=== PATIENT | female | born 1995 | race Caucasian/White ===

== ENCOUNTER → 2019-01-19 23:58 | Observation (INO) ==
[2019-01-19 22:26] LABS: Amphetamine Screen,Urine Negative ng/mL (Cutoff=1000); Barbiturate Screen,Urine Negative ng/mL (Cutoff=200); Benzodiazepines Screen,Urine Negative ng/mL (Cutoff=200); Cannabinoid Screen,Urine Negative ng/mL (Cutoff = 50); Cocaine Screen,Urine Negative ng/mL (Cutoff= 300); Opiate Screen,Urine Negative ng/mL (Cutoff=300); Phencyclidine Screen,Urine Negative ng/mL (Cutoff=25)
[2019-01-19 23:23] LABS: Candida DNA DETECTED (Not Detect); Gardnerella DNA Not Detected (Not Detect); Trichomonas DNA Not Detected (Not Detect)
--- NOTE | 2019-01-19 23:43 | Discharge Summary ---
Date of Encounter: 01/19/19 Time of Encounter: 23:41 - Discharge Diagnosis (1) 39 weeks gestation of Priority: Primary Status: Acute Comments: admit to observation for c/o LE swelling and visual disturbance. (2) Vulvovaginal candidiasis Priority: Secondary Status: Acute Comments: will send home with Rx for diflucan (3) NST (non-stress test) reactive Priority: Secondary Status: Acute Comments: FHR 135 bpm, category 1 - Discharge Medications Prescriptions: New Fluconazole [Diflucan] 150 mg PO DAILY 1 Days #1 tab No Action One Tablet 1 mg PO DAILY Home Medications: Fluconazole [Diflucan] 150 mg PO DAILY 1 Days #1 tab 01/19/19 [Rx] One Tablet 1 mg PO DAILY 01/19/19 [History] Allergies/Adverse Reactions: Allergy/AdvReac Type Severity Reaction Status Date / Time No Known Allergies Allergy Verified 06/12/18 18:11 Data Procedures and tests throughout hospitalization: Laboratory Tests 01/19/19 01/19/19 21:56 22:27 Urine Opiates Screen Negative Ur Buprenorphine Scrn Negative Ur Barbiturates Screen Negative Ur Phencyclidine Scrn Negative Ur Amphetamines Screen Negative U Benzodiazepines Scrn Negative Urine Cocaine Screen Negative U Marijuana (THC) Screen Negative Ur Drug Screen Interp See Below Nelli species DNA DETECTED A Gardnerella DNA Probe Not Detected Trichomonas DNA Probe Not Detected Labs on day of discharge: Labs from last 24 hours 01/19/19 01/19/19 22:27 21:56 Urine Opiates Screen Negative Ur Buprenorphine Scrn Negative Ur Barbiturates Screen Negative Ur Phencyclidine Scrn Negative Ur Amphetamines Screen Negative U Benzodiazepines Scrn Negative Urine Cocaine Screen Negative U Marijuana (THC) Screen Negative Ur Drug Screen Interp See Below Nelli species DNA DETECTED A [place] DNA Probe Not Detected Trichomonas DNA Probe Not Detected Date of admission: 01/19/19 21:37 Discharging clinician: Yue Brewster Anticipated date of discharge: 01/19/19 - Patient Status Disposition: Home, Self-Care Condition: Good Functional capacity at discharge: independent ambulation Overall status at discharge: patient is progressing back to baseline - Discharge Instructions Follow Up With: Erna Greco [Advanced Practice Nurse] - - Diet and Activity Activity: resume usual activities as tolerated Diet: regular diet Hospital Course KINESEOLOGIST Hospital course: Patient arrived this evening with complaints of visual disturbance and lower extremity swelling. She states she has been seeing "floaters" and was concerned about preeclampsia. Her BP's are all normal and lower extremity swelling is mini mal. She did also complain of some abnormal vaginal discharge so a vaginosis panel was completed and returned positive for yeast. Patient was informed and will be sent home with RX for Diflucan. She reports positive movement, denies vaginal bleeding and watery discharge. She is to return to OB provider tomorrow as scheduled for routine visit. Time Attestation: Total time spent providing and/or coordinating discharge services: Time Spent: Less than 30 minutes Exam - Constitutional General appearance IM: mild distress, A&O X 3, pleasant, answers questions appropriately - Respiratory Respiratory exam: Present: CTAB. Absent: accessory muscle use, rales, rhonchi, stridor, wheezes - Cardiovascular Cardiovascular exam IM: Present: RRR, +S1, +S2. Absent: diastolic murmur, systolic murmur - GI/Abdominal GI/Abdominal exam IM: normal bowel sounds - Rectal Rectal exam: deferred - External exam: normal external exam - Extremities Exam Extremities exam IM: Present: pedal edema (+1). Absent: cyanotic - Neurological Exam Neurological exam: alert, CN II-XII intact, oriented X3, reflexes normal - VTE Reasons for not Prescribing Prophylaxis: Treatment not Indicated - Low risk for VTE
== END | disposition home or self-care (01) ==
LOC: 1NENULAB
PROVIDERS: ADMIT Registered Nurse; ATTEND Registered Nurse

== ENCOUNTER 2019-01-21 18:09 | Inpatient (IN) ==
[~2019-01-21 18:09] MED LIST: *HR* Nalbuphine 10 MG/ML AMPUL IVP PRN; Famotidine 20 MG/2 ML VIAL IVP PRN; Lidocaine 1% 20 ML MDV INFILT PRN; Metoclopramide 10 MG/2 ML VIAL IVP PRN; Naloxone 0.4 MG/ML INJ IVP PRN; Penicillin G Potassium 5,000,000 UNIT in 0.9 % Sodium Chloride Mini Bag 100 ML IVPB ONE; miSOPROStol 25 MCG TABLET PO PRN
[2019-01-21] MEDS ORDERED: Ringers Solution, Lactated 1,000 ML IVC SCH (18:15)
[2019-01-21] MEDS ORDERED: Oxytocin 20 units/ LR 1000 mL 20 UNIT/1,000 ML BAG IVC SCH (18:15)
[2019-01-21 18:34] LABS: Basophils # 0.1 K/mcL (0.0-0.2); Basophils % 0.8 %; Eosinophils # 0.1 K/mcL (0.0-0.6); Eosinophils % 0.7 %; Hematocrit 38.8 % (35.3-44.9); Hemoglobin 12.9 g/dL (11.5-15.4); Immature Granulocytes % 2.2 % (0-4); Lymphocytes # 2.1 K/mcL (0.6-4.6); Lymphocytes % 14.3 %; Mean Corpuscular HGB Conc 33.2 g/dL (31.6-35.5); Mean Corpuscular Hemoglobin 30.2 pg (28.0-33.3); Mean Corpuscular Volume 90.9 fL (83.0-100.0); Mean Platelet Volume 11.6 fL (9.4-12.4); Monocytes # 1.7 K/mcL (0.0-1.3); Monocytes % 11.1 %; Neutrophils # 10.6 K/mcL (1.6-8.9); Platelet Count 271 K/mcL (140-400); Red Blood Count 4.27 M/mcL (3.82-4.97); Red Cell Distribution Width 13.3 % (11.5-14.5); Segmented Neutrophils % 70.9 %; White Blood Count 14.9 K/mcL (4.3-11.1)
--- NOTE | 2019-01-21 20:11 | Anesthesia Evaluation PreOp ---
Date of Encounter: 01/21/19 Time of Encounter: 20:09 - Past History Planned Operation: maia Cardiac History: Denies any Significant Hx Pulmonary History: Denies Any Significant HX SENIOR RISK ANALYST History: Seizures (as 3 day , none since) Other Medical History: GERD Anesthesia History: No Prior Anesthetic Complications : Yes Test: Positive Alcohol Use: none Drug use: none Medications and Allergies One Tablet 1 mg PO DAILY 01/19/19 [History] Allergy/AdvReac Type Severity Reaction Status Date / Time No Known Allergies Allergy Verified 01/21/19 17:26 - Meds/Allergy Pre-op Review Medications Reviewed: Yes Allergies Reviewed: Yes Beta Blockers on Current Med List: No Anesthesia Results - Labs 01/21/19 17:30 Anesthesia Exam 136/80 88 16 fht 133 Height: 5'2" Weight: 69 k NPO (# of Hours): 2 Pain Scale: 1 Pain Scale Used: Numeric (1 - 10) - HEENT Pupil (Motor): Pupils equal Mallampati: II Teeth: Normal Oral Opening: Greater than 3 - SENIOR RISK ANALYST LOC: Oriented SENIOR RISK ANALYST Motor: Normal RUE, Normal LUE, Normal RLE, Normal LLE, Normal Face SENIOR RISK ANALYST Sensory: Normal: RUE, LUE, RLE, LLE, Face - Cardiac Rhythm: Regular Murmur: None - Pulmonary Breath Sounds: bilateral Clear Anesthesia Assess/Plan ASA Score: 2 Level of consciousness: Cooperative Anesthetic Plan: Epidural (risks discussed, questions answered, consented) Autologous Blood: No Monitoring Plan: Standard Monitors Recovery Plan: Other
[2019-01-21] MEDS ORDERED: Epidural Premix (fent/bupiv) 110 ML EP SCH (20:15)
[2019-01-21 20:28] LABS: Amphetamine Screen,Urine Negative ng/mL (Cutoff=1000); Barbiturate Screen,Urine Negative ng/mL (Cutoff=200); Benzodiazepines Screen,Urine Negative ng/mL (Cutoff=200); Cannabinoid Screen,Urine Negative ng/mL (Cutoff = 50); Cocaine Screen,Urine Negative ng/mL (Cutoff= 300); Opiate Screen,Urine Negative ng/mL (Cutoff=300); Phencyclidine Screen,Urine Negative ng/mL (Cutoff=25)
--- NOTE | 2019-01-21 20:55 | OB/GYN History & Physical ---
Date of Encounter: 01/21/19 Time of Encounter: 20:19 Assessment and Plan (1) 39 weeks gestation of Current visit: No Status: Acute Admit for spontaneous rupture of membranes at 39w1d (2) GBS (group B Streptococcus carrier), +RV culture, currently Current visit: Yes Status: Acute PCN-G prophylaxis q4h until delivery. (3) Vulvovaginal candidiasis Current visit: No Status: Acute Diagnosed 2 days prior. Will treat with Diflucan (4) NST (non-stress test) reactive Current visit: No Status: Acute Category I FHR tracing History of Present Illness Chief complaint: SROM HPI: Ms. Kowalski is a 23 year old female at 39w1d who arrives after SROM today, clear fluid. Nitrazine was positive on admission, copious amount of fluid on pads. She reports positive movement, denies bleeding and regular contractions. Blood type O+ GBS positive Rubella Immune RPR negative HbSAG negative HIV negative Past Med Surg Social Fam HX - Past Medical History Source: patient Medical history: no medical history Psychiatric history: anxiety - Past Surgical History Surgical History: no surgical history - Social History Smoking Status: Never smoker Smokeless Tobacco Status: No Alcohol use: none Drug use: none Current living situation: Home - Independent, With Family Activity Level: Independent ambulation Recent Out of Country Travel Within the Last 8 Weeks: No Exposure or Possible Exposure to Illness During Travel: No - Family History Sister Living Status: Still Living Hx Family Cardiac Disorders: No Hx Family Respiratory Disorders: No Hx Family Cancer: No Hx Family GI Disorders: No Hx Family Endocrine Disorder: No Hx Family Neuromuscular Disorders: No Hx Family Neurologic Disorders: No Hx Family HEENT Disorders: No Hx Family Autoimmune Disorders: No Hx Family Medical Disorders: Yes (autistic) Obstetrical History - Pregnancies : 1 Para: 0 Term: 0 : 0 Ab's: 0 Livin Medications and Allergies One Tablet 1 mg PO DAILY 01/19/19 [History] Allergy/AdvReac Type Severity Reaction Status Date / Time No Known Allergies Allergy Verified 01/21/19 17:26 Review of System OB All systems PM: reviewed and no additional remarkable complaints except as stated Exam - Constitutional Constitutional: well developed, well nourished, no acute distress, average body habitus - HEENT HEENT: Normocephaly, Mucus Membranes Moist - Neck Neck exam: full ROM - Lungs Respiratory exam: CTAB - Cardiovascular Cardiovascular exam: RRR, +S1, +S2 - Breasts Breast: bilateral: normal - Abdomen Abdomen: Present: bowel sounds normal, gravid, non tender - Extremities Extremities exam: full ROM, normal capillary refill, normal inspection - Vulva Vulva: bilateral: normal - Vagina Vagina: Present: normal moisture - Cervix Dilation: 2 Effacement: 60 (per RN exam) Station: -2 - Uterus Uterus exam: Present: normal size - Anus/Rectum Anus/Rectum: Present: normal perianal skin Results Result Diagrams: 01/21/19 17:30 Abnormal lab results WBC 14.9 K/mcL (4.3-11.1) H 01/21/19 17:30 Neutrophils # 10.6 K/mcL (1.6-8.9) H 01/21/19 17:30 Monocytes # 1.7 K/mcL (0.0-1.3) H 01/21/19 17:30 All other labs normal. - VTE Reasons for not Prescribing Prophylaxis: Treatment not Indicated - Low risk for VTE
[2019-01-21] MEDS: Penicillin G Potassium 2,500,000 UNIT in 0.9 % Sodium Chloride 100 ML IVPB SCH (22:39)
--- NOTE | 2019-01-21 23:00 | OB Labor Progress Note ---
Date of Encounter: 01/21/19 Time of Encounter: 22:56 Labor Progress Note - Subjective Subjective: Patient coping well with contractions. Family members at bedside for support. - Cervix Cervix: 2 cm, unchanged from admission SVE - Heart Tones Heart Tones: FHR 130 bpm, moderate variability, +15x15 accels, no decels. - [place]: Irregular - Interventions Interventions: SVE per RN Unchanged, Pitocin to be initiated - Plan Plan: Start Pitocin Epidural when patient desires Anticipate
[2019-01-22] MEDS ORDERED: *HR* FentaNYL (PF) 100 MCG/2 ML VIAL EP ONE (00:02)
[2019-01-22] MEDS ORDERED: *HR* FentaNYL (PF) 100 MCG/2 ML VIAL ONE (00:04)
--- NOTE | 2019-01-22 00:30 | Anesthesia Procedures ---
Date of Encounter: 01/22/19 Time of Encounter: 00:28 Procedures: Anesthesia - Epidural/Spinal Patient ID/Chart reviewed: Yes Patient examined: Yes OB Eval: Gestational age: 39 OB Eval: : 1 OB Eval: Hx Para: 0 OB Eval: Dilated at (cm): 4 OB Eval: Contractions: Non-stressed pattern Consent Obtained: Yes Supplemental Oxygen: None/Room Air Site Prep: Aseptic Technique, Sterile prep and drape, 0.5% Chlorhexidine/Alcohol Patient position: upright Local Anesthetic: Lidocaine 1% Amount of Local Anesthetic used: 3 Touhy Needle Gauge: 18 Touhy Needle Depth (cm): 6 Catheter Depth at Skin (cm): 15 Test Dose (1.5% Lido + Epi): Volume given (mls): 3 Test Dose Result: Negative Loading Dose: Fentanyl (mcg): 100 Loading Dose: Other: ropavacaine 0.2% 5cc Loading Dose Administered: Thru Touhy Needle Infusion Med: 0.125% Bupivacaine w/ 2 mcg/ml Fentanyl Infusion Rate (mls/hr): 15 (pcea 5cc q30") Catheter Secured in Place: Tegaderm Interspace Used: L2-L3 Loss of Resistance (TANMAY): Yes Blood: No CSF: No Paresthesia: No Procedure: aseptic, tolerated well, VSS, effective Vitals + FHT's: 110/78 88 16 fht 133
[2019-01-22] MEDS: Penicillin G Potassium 2,500,000 UNIT in 0.9 % Sodium Chloride 100 ML IVPB SCH (01:55)
--- NOTE | 2019-01-22 02:37 | OB Labor Progress Note ---
Date of Encounter: 01/22/19 Time of Encounter: 02:35 Labor Progress Note - Subjective Subjective: Patient feeling intense pressure with contractions. - Vital Signs Vital Signs: WNL - Cervix Cervix: 9/100/+1 - Heart Tones Heart Tones: FHR 135 bpm, moderate variability, +15x15 accels, occasional early decel. - [employer]: q2-3 - Interventions Interventions: Attempted to reduce cervix due to patient's intense urge to push. Unable to reduce remaining cervix. Patient repositioned to tailor sitting position. - Plan Plan: Recheck cervix when patient feels constant urge to push. Anticipate
[2019-01-22] MEDS ORDERED: Oxytocin 20 units/ LR 1000 mL 20 UNIT/1,000 ML BAG IVC SCH (06:39)
[2019-01-22] MEDS ORDERED: Benzocaine/Menthol 56 GM AEROSOL SPRAY TP PRN (06:39)
[2019-01-22] MEDS ORDERED: Lanolin 7 G OINT...G. TP PRN (06:39)
[2019-01-22] MEDS ORDERED: Acetaminophen 325 MG TABLET PO PRN (06:39)
[2019-01-22] MEDS ORDERED: Ondansetron 4 MG/2 ML VIAL IVP PRN (06:52)
--- NOTE | 2019-01-22 07:03 | OB/GYN Procedure Note ---
Delivery - Delivery Date: 01/22/19 Provider: Yue Brewster Intrapartum events: none Delivery induction: none Delivery augmentation: pitocin Delivery monitor: external FHT, external uterine Anesthesia: local, epidural Quantitated Blood Loss: 200 - Infant (s) Infant A Delivery Date: 01/22/19 Infant Delivery Time: 03:21 Presentation: vertex Position: SHASHANK Route of delivery: Gender: Male Viability: Viable Pounds: 7 Ounces: 8 Weight Gram: 3.4 kg at 1 minute: 8 at 5 mins: 9 Shoulder Dystocia: not encountered Placenta: spontaneous, uterine exploration Cord: nuchal cord, 3 umbilical vessels, delivered through nuchal - Repair Episiotomy: none Laceration Description: Perineal - 1st Degree, Labial - Complications Delivery complications: retained placenta Delivery comments: Called to room for delivery. Under maternal effort, spontaneous delivery of a male over first-degree perineal laceration, repaired with 3-0 Vicryl. Bilateral labial lacerations noted, left side repaired with 4-0 Vicryl, right side left to heal by secondary intention. placed on maternal abdomen for drying and stimulation. Cord clamped and cut after pulsation ceased. Spontaneous delivery of intact placenta, as membranes delivered, there was a small section of membranes that . Uterine exploration completed after patient given IV Nubain. Several small pieces of membranes were retrieved and bleeding was moderate. Nursing staff instructed to call Dr. Patel if bleeding increased or it was suspected that all membranes were not removed. EBL 200 mL's. Nuchal cord x 2 loose, delivered through. No shoulder dystocia or meconium encountered. Mother and infant in kangaroo care for 2 hour recovery. - Disposition Mom disposition: stable in LDR disposition: stable in LDR
[2019-01-22] MEDS: Ibuprofen 600 MG TABLET PO PRN ×2 (09:07→19:47)
[2019-01-22] MEDS: Prenatal Vit/FA 1 EACH TABLET PO SCH (09:07)
[2019-01-23] MEDS: Prenatal Vit/FA 1 EACH TABLET PO SCH (07:47)
[2019-01-23] MEDS: Ibuprofen 600 MG TABLET PO PRN (07:47)
[2019-01-23 08:00] VITALS: BP 105/65
--- NOTE | 2019-01-23 10:01 | Discharge Summary ---
Date of Encounter: 01/23/19 Time of Encounter: 09:59 - Discharge Diagnosis (1) Vaginal delivery Priority: Primary Status: Acute Comments: Feeling well Tolerating regular diet Pain well-controlled with by mouth pain meds Ambulating independently Voiding independently Lochia light Passing flatus, no BM yet Vital signs stable Discharge home today (2) Breast feeding status of mother Priority: Secondary Status: Acute Comments: Community resources provided - Discharge Medications Prescriptions: New Acetaminophen [Tylenol] 650 mg PO Q6HR PRN tablet PRN Reason: Mild Pain Ibuprofen [Motrin] 600 mg PO Q6HR PRN #30 tablet PRN Reason: Cramping Benzocaine/Menthol [place] [Dermoplast [place]] 1 appl TP QID PRN aerosol PRN Reason: See Comments Docusate [Colace] 100 mg PO BID #30 capsule Lanolin [Lansinoh] 1 appl TP TID PRN oint...g. PRN Reason: Sore Nipples Continued One Tablet 1 mg PO DAILY Home Medications: One Tablet 1 mg PO DAILY 01/19/19 [History] Acetaminophen [Tylenol] 650 mg PO Q6HR PRN tablet 01/23/19 [Rx] Benzocaine/Menthol [place] [Dermoplast [place]] 1 appl TP QID PRN aerosol 01/23/19 [Rx] Docusate [Colace] 100 mg PO BID #30 capsule 01/23/19 [Rx] Ibuprofen [Motrin] 600 mg PO Q6HR PRN #30 tablet 01/23/19 [Rx] Lanolin [Lansinoh] 1 appl TP TID PRN oint...g. 01/23/19 [Rx] Allergies/Adverse Reactions: Allergy/AdvReac Type Severity Reaction Status Date / Time No Known Allergies Allergy Verified 01/21/19 17:26 Data Procedures and tests throughout hospitalization: Laboratory Tests 01/21/19 01/21/19 17:30 17:30 WBC 14.9 H RBC 4.27 Hgb 12.9 Hct 38.8 MCV 90.9 MCH 30.2 MCHC 33.2 RDW 13.3 Plt Count 271 MPV 11.6 Immature Gran % 2.2 Seg Neutrophils % 70.9 Lymphocytes % 14.3 Monocytes % 11.1 Eosinophils % 0.7 Basophils % 0.8 Neutrophils # 10.6 H Lymphocytes # 2.1 Monocytes # 1.7 H Eosinophils # 0.1 Basophils # 0.1 Urine Opiates Screen Negative Ur Buprenorphine Scrn Negative Ur Barbiturates Screen Negative Ur Phencyclidine Scrn Negative Ur Amphetamines Screen Negative U Benzodiazepines Scrn Negative Urine Cocaine Screen Negative U Marijuana (THC) Screen Negative Ur Drug Screen Interp See Below Date of admission: 01/21/19 18:09 Primary care physician: Dottie Guerrero Consults: 01/22/19 06:39 Consult to Switchboard Wirer [CONS] Routine Comment: Vaginal delivery, consult needed Discharging clinician: Erna Greco Anticipated date of discharge: 01/23/19 - Patient Status Disposition: Home, Self-Care Condition: Good Functional capacity at discharge: independent ambulation Overall status at discharge: patient is progressing back to baseline - Discharge Instructions Follow Up With: Dottie Guerrero, INJECTION MOULDING MACHINE OPERATOR [Primary Care Provider] - Bea Vega CNM [Non-Partnered Physician] - - Diet and Activity Activity: increase activity as tolerated Diet: regular diet Hospital Course Reason for admission: IUP at term, ROM Delivery: Episiotomy: none Laceration: 1st degree Other procedures: none complications: none Discharge diagnosis: IUP at term delivered [place] baby: male Time Attestation: Total time spent providing and/or coordinating discharge services: Time Spent: Less than 30 minutes Exam - Constitutional Vitals: Temp Pulse Resp BP Pulse Ox 98.1 F 74 16 105/65 99 01/23/19 07:58 01/23/19 07:58 01/23/19 07:58 01/23/19 07:58 01/23/19 07:58 General appearance IM: A&O X 3, pleasant, no acute distress, answers questions appropriately - Respiratory Respiratory exam: Present: CTAB - Cardiovascular Cardiovascular exam IM: Present: RRR, +S1, +S2 - GI/Abdominal GI/Abdominal exam IM: normal bowel sounds, no peritoneal signs - Rectal Rectal exam: deferred - Uterine Tone: Firm Uterus Position: 2 Fingers Below Umbilicus, Midline - Extremities Exam Extremities exam IM: Present: full ROM, normal capillary refill, normal inspection, radial pulses palpable and symmetrical - Neurological Exam Neurological exam: alert, CN II-XII intact, normal gait, oriented X3, reflexes normal, no focal deficits, strengths equal and symetr throughout - Psychiatric Additional comments: Signs and symptoms of depression discussed with patient and partner and both verbalized understanding of when to seek help
== END 2019-01-23 14:45 | disposition home or self-care (01) | DRG 560 ==
LOC: 1NENULAB → 1NENUOBS 01-22 06:36
PROVIDERS: ADMIT Registered Nurse; ATTEND Registered Nurse

== ENCOUNTER 2020-07-09 01:45 | Inpatient (IN) ==
[2020-07-09] MEDS ORDERED: *HR* Nalbuphine 10 MG/ML AMPUL IV PRN (01:49)
[2020-07-09] MEDS ORDERED: Ondansetron 4 MG/2 ML VIAL IVP PRN (01:49)
[2020-07-09] MEDS ORDERED: Lidocaine 1% 20 ML MDV INFILT PRN (01:49)
[2020-07-09] MEDS ORDERED: Naloxone 0.4 MG/ML INJ IVP PRN (01:49)
[2020-07-09] MEDS ORDERED: Famotidine 20 MG/2 ML VIAL IVP PRN (01:49)
[2020-07-09] MEDS ORDERED: Metoclopramide 10 MG/2 ML VIAL IVP PRN (01:49)
[2020-07-09] MEDS ORDERED: Ringers Solution, Lactated 1,000 ML IVC SCH (02:00)
[2020-07-09 03:12] LABS: Basophils # 0.1 K/mcL (0.0-0.2); Basophils % 0.6 %; Eosinophils # 0.2 K/mcL (0.0-0.6); Eosinophils % 0.8 %; Hemoglobin 13.2 g/dL (11.5-15.4); Immature Granulocytes % 1.4 % (0-4); Lymphocytes # 2.8 K/mcL (0.6-4.6); Mean Corpuscular Hemoglobin 29.9 pg (28.0-33.3); Mean Corpuscular Volume 90.7 fL (83.0-100.0); Monocytes # 1.7 K/mcL (0.0-1.3); Monocytes % 9.1 %; Neutrophils # 13.7 K/mcL (1.6-8.9); Platelet Count 296 K/mcL (140-400); Red Blood Count 4.41 M/mcL (3.82-4.97); Red Cell Distribution Width 14.2 % (11.5-14.5); Segmented Neutrophils % 73.1 %; White Blood Count 18.8 K/mcL (4.3-11.1)
[2020-07-09 03:19] LABS: Amphetamine Screen,Urine Negative ng/mL (Cutoff=1000); Barbiturate Screen,Urine Negative ng/mL (Cutoff=200); Benzodiazepines Screen,Urine Negative ng/mL (Cutoff=200); Cannabinoid Screen,Urine Negative ng/mL (Cutoff = 50); Cocaine Screen,Urine Negative ng/mL (Cutoff= 300); Opiate Screen,Urine Negative ng/mL (Cutoff=300); Phencyclidine Screen,Urine Negative ng/mL (Cutoff=25)
[2020-07-09] MEDS ORDERED: EPHEDrine 50 MG/ML VIAL IVP PRN (03:28)
[2020-07-09] MEDS ORDERED: Epidural Premix (fent/bupiv) 110 ML EP SCH (03:30)
[2020-07-09] MEDS ORDERED: Epidural Premix (fent/bupiv) 110 ML EP ONE (03:34)
[2020-07-09] MEDS ORDERED: Oxytocin 20 units/ LR 1000 mL 20 UNIT/1,000 ML BAG IVC ONE (04:58)
[2020-07-09] MEDS ORDERED: Ropivacaine/PF 0.2% 20 ML VIAL ONE (07:20)
[2020-07-09] MEDS ORDERED: *HR* FentaNYL (PF) 100 MCG/2 ML VIAL ONE (07:20)
[2020-07-09] MEDS ORDERED: Oxytocin 20 units/ LR 1000 mL 20 UNIT/1,000 ML BAG IVC SCH (11:27)
[2020-07-09] MEDS ORDERED: Benzocaine/Menthol 56 GM AEROSOL SPRAY TP PRN (11:27)
[2020-07-09] MEDS ORDERED: Acetaminophen 325 MG TABLET PO PRN (11:27)
[2020-07-09] MEDS: Ibuprofen 600 MG TABLET PO PRN ×2 (13:32→21:07)
[2020-07-10] MEDS: Ibuprofen 600 MG TABLET PO PRN (07:40)
[2020-07-10 08:12] VITALS: BP 111/65
[2020-07-10] MEDS ORDERED: Prenatal Vit/FA 1 EACH TABLET PO SCH (09:00)
== END 2020-07-10 11:22 | disposition home or self-care (01) | DRG 560 ==
LOC: 1NENULAB → 1NENUOBS 11:21
PROVIDERS: ADMIT Advanced Practice Midwife; ATTEND Advanced Practice Midwife

== ENCOUNTER 2021-12-10 11:50 | Inpatient (IN) ==
[~2021-12-10 11:50] MED LIST changes: +*HR* Nalbuphine 10 MG/ML AMPUL IV PRN; -*HR* Nalbuphine 10 MG/ML AMPUL IVP PRN; -Lidocaine 1% 20 ML MDV INFILT PRN; +Ondansetron 4 MG/2 ML VIAL IVP PRN; -Penicillin G Potassium 5,000,000 UNIT in 0.9 % Sodium Chloride Mini Bag 100 ML IVPB ONE; -miSOPROStol 25 MCG TABLET PO PRN
[2021-12-10] MEDS ORDERED: Penicillin G Potassium 5,000,000 UNIT in 0.9 % Sodium Chloride Mini Bag 100 ML IVPB ONE (12:00)
[2021-12-10] MEDS ORDERED: Oxytocin 30 UNIT/503 ML BAG IVC SCH (12:15)
[2021-12-10] MEDS: Ringers Solution, Lactated 1,000 ML IVC SCH ×2 (12:29→17:49)
[2021-12-10 12:49] LABS: Basophils # 0.1 K/mcL (0.0-0.2); Basophils % 0.7 %; Eosinophils # 0.3 K/mcL (0.0-0.6); Hematocrit 38.5 % (35.3-44.9); Hemoglobin 12.9 g/dL (11.5-15.4); Immature Granulocytes % 2.2 % (0-4); Lymphocytes # 2.4 K/mcL (0.6-4.6); Lymphocytes % 18.9 %; Mean Corpuscular HGB Conc 33.5 g/dL (31.6-35.5); Mean Corpuscular Hemoglobin 30.4 pg (28.0-33.3); Mean Corpuscular Volume 90.8 fL (83.0-100.0); Monocytes # 1.7 K/mcL (0.0-1.3); Monocytes % 13.3 %; Neutrophils # 7.9 K/mcL (1.6-8.9); Platelet Count 226 K/mcL (140-400); Red Blood Count 4.24 M/mcL (3.82-4.97); Segmented Neutrophils % 62.9 %; White Blood Count 12.5 K/mcL (4.3-11.1)
[2021-12-10] MEDS: Penicillin G Potassium 2,500,000 UNIT/105 ML MLS IVPB SCH ×2 (16:28→20:26)
[2021-12-10] MEDS ORDERED: Ropivacaine/PF 0.2% 20 ML VIAL EP ONE (17:08)
[2021-12-10] MEDS ORDERED: *HR* FentaNYL (PF) 100 MCG/2 ML VIAL EP ONE (17:08)
[2021-12-10] MEDS ORDERED: EPHEDrine 50 MG/ML VIAL IVP PRN (17:08)
[2021-12-10] MEDS ORDERED: Epidural Premix (fent/bupiv) 110 ML EP SCH (17:15)
[2021-12-10 18:50] LABS: Amphetamine Screen,Urine Negative ng/mL (Cutoff=1000); Barbiturate Screen,Urine Negative ng/mL (Cutoff=200); Benzodiazepines Screen,Urine Negative ng/mL (Cutoff=200); Cannabinoid Screen,Urine Negative ng/mL (Cutoff = 50); Cocaine Screen,Urine Negative ng/mL (Cutoff= 300); Opiate Screen,Urine Negative ng/mL (Cutoff=300); Phencyclidine Screen,Urine Negative ng/mL (Cutoff=25)
[2021-12-10] MEDS ORDERED: *HR* FentaNYL (PF) 100 MCG/2 ML VIAL ONE (22:57)
[2021-12-10] MEDS ORDERED: Ropivacaine/PF 0.2% 20 ML VIAL ONE (22:57)
[2021-12-10] MEDS ORDERED: Ibuprofen 600 MG TABLET PO ONE (23:40)
[2021-12-11] MEDS ORDERED: Ondansetron ODT 4 MG TAB.RAPDIS SL PRN (01:31)
[2021-12-11] MEDS ORDERED: Oxytocin 30 UNIT/503 ML BAG IVC SCH (01:31)
[2021-12-11] MEDS ORDERED: Lanolin 7 G OINT...G. TP PRN (01:31)
[2021-12-11] MEDS ORDERED: *HR* OxyCODONE Immed Rel 5 MG TABLET PO PRN (01:31)
[2021-12-11] MEDS ORDERED: Benzocaine/Menthol 56 GM AEROSOL SPRAY TP PRN (01:31)
[2021-12-11 05:44] LABS: Basophils # 0.1 K/mcL (0.0-0.2); Basophils % 0.5 %; Eosinophils # 0.1 K/mcL (0.0-0.6); Eosinophils % 0.3 %; Hematocrit 37.3 % (35.3-44.9); Immature Granulocytes % 1.2 % (0-4); Lymphocytes # 1.8 K/mcL (0.6-4.6); Lymphocytes % 9.2 %; Mean Corpuscular HGB Conc 32.2 g/dL (31.6-35.5); Mean Corpuscular Hemoglobin 30.2 pg (28.0-33.3); Mean Corpuscular Volume 93.7 fL (83.0-100.0); Mean Platelet Volume 12.2 fL (9.4-12.4); Monocytes # 1.7 K/mcL (0.0-1.3); Monocytes % 8.8 %; Platelet Count 231 K/mcL (140-400); Red Blood Count 3.98 M/mcL (3.82-4.97); Red Cell Distribution Width 14.1 % (11.5-14.5)
[2021-12-11 05:48] LABS: Neutrophils # 15.8 K/mcL (1.6-8.9); White Blood Count 19.7 K/mcL (4.3-11.1)
[2021-12-11] MEDS: Acetaminophen 325 MG TABLET PO SCH ×3 (08:14→21:18)
[2021-12-11] MEDS: Ibuprofen 600 MG TABLET PO SCH ×3 (08:14→21:18)
[2021-12-11] MEDS: Prenatal Vit/FA 1 EACH TABLET PO SCH (08:15)
[2021-12-12] MEDS: Ibuprofen 600 MG TABLET PO SCH ×2 (03:38→09:06)
[2021-12-12] MEDS: Acetaminophen 325 MG TABLET PO SCH (03:39)
[2021-12-12 07:27] VITALS: BP 114/62; PULSE 55; TEMP 97.7; O2SAT 100
[2021-12-12] MEDS: Prenatal Vit/FA 1 EACH TABLET PO SCH (09:06)
== END 2021-12-12 13:46 | disposition home or self-care (01) | DRG 560 ==
LOC: 1NENULAB → 1NENUOBS 12-11 02:18
PROVIDERS: ADMIT Advanced Practice Midwife; ATTEND Advanced Practice Midwife